=== PATIENT | female | born 1955 | race Caucasian/White ===

== ENCOUNTER 2021-12-10 10:07 | Emergency (ER) | payer BC, SELFPAY ==
--- NOTE | ~2021-12-10 | XR_ITS ---
EXAMINATION: XR hip RT min 2V DATE: 12/10/2021 12:24 INDICATION: Right hip injury. TECHNIQUE: 2 views of right hip were obtained. COMPARISON: None. FINDINGS: Bone alignment is normal. No fracture. There is mild right hip osteoarthritis characterized by a marginal osteophyte. No joint space narrowing. IMPRESSION: 1. Mild right hip osteoarthritis. Reviewed, dictated and finalized at location A.
--- NOTE | ~2021-12-10 | XR_ITS ---
EXAMINATION: XR ankle LT min 3V, XR foot LT min 3V DATE: 12/10/2021 10:46 INDICATION: Left foot and ankle pain post fall TECHNIQUE: 1. Anteroposterior, mortise, additional oblique and lateral view of the left ankle were obtained. 2. Dorsoplantar, two oblique and lateral views of the left foot were obtained. COMPARISON: None. FINDINGS: There is flattening of Boehler's angle consistent with a joint depression type calcaneal fracture. Th ere is up to 304 mm separation of an oblique fracture plane extending to the lateral margin of the po sterior facet of the subtalar joint, distally to the lateral margin of the articular surface at the c alcaneocuboid joint. Alignment of the ankle joint and remainder of the left foot is normal. No other fractures identified. Mild osteoarthritis at a few of the tarsal metatarsal and interphalangeal joint s. Mild soft tissue swelling about the hindfoot. Bunion with additional mild soft tissue swelling med ial to the head of the first metatarsal. Moderate-sized plantar calcaneal spur. No ankle joint effusi on. IMPRESSION: 1. Minimally displaced joint depression type left calcaneal fracture with flattening of Boehler's ang le. Reviewed, dictated and finalized at location B. IMPRESSION: 1. Minimally displaced joint depression type left calcaneal fracture with bib ening of Boehler's angle.
--- NOTE | ~2021-12-10 | XR_ITS ---
EXAMINATION: XR knee RT min 4V DATE: 12/10/2021 10:46 INDICATION: Right patellar pain post fall TECHNIQUE: Anteroposterior, 2 oblique, sunrise and crosstable lateral views of the right knee were ob tained COMPARISON: None. FINDINGS: Alignment is normal. No fracture. Joint space appear normal on nonweightbearing imaging. No joint ef fusion/layering lipohemarthrosis. Mild soft tissue swelling anterior to the patellar tendon. IMPRESSION: 1. No right knee joint effusion or osseous abnormality. Reviewed, dictated and finalized at location B.
--- NOTE | 2021-12-10 10:17 | ED.LOWEXIN ---
HPI - Extremity Injury (Lower) General Chief Complaint: Extremity Injury, Lower Stated Complaint: left foot,right knee injury Time Seen by Provider: 12/10/21 10:22 Source: patient, family, RN notes reviewed and old records reviewed History of Present Illness HPI Narrative: 66 year [facility] complaints of falling last evening along side of road twisting her ankle and landing onto knees. Patient reports that she was hauling building material on top of her car and it fell off onto the road and in process of retrieving material she fell with injuries to left ankle and right knee. Patient reports that she has been putting ice, lissy wrap to left foot and ankle and has taken Tylenol for her discomfort. Patient has abrasions to bilateral knees and patient reports that she can't put any weight on her right knee. Patient reports no LOC at time of injuries. MD complaint: knee injury, ankle injury and foot injury Onset (ago): hour(s) (yesterday at 1900) Injury: Left: ankle and foot and Right: knee Severity scale (1-10): 10 (foot 10, knee 7) Treatments prior to arrival: cold therapy and other (lissy wrap to left foot and took tylenol) Related Data Allergies Allergy/AdvReac Type Severity Reaction Status Date / Time No Known Allergies Allergy Verified 12/10/21 10:08 Review of Systems Review of Systems: CONSTITUTIONAL: Denies fever, chills, or sweats. EYES: Denies visual changes, redness, or discharge. ENT: Denies rhinorrhea, congestion, sore throat, or otalgia. CARDIOVASCULAR: Denies chest pain, palpitations, or edema. RESPIRATORY: Denies cough or dyspnea. GASTROINTESTINAL: Denies abdominal pain, nausea, vomiting, or diarrhea. GENITOURINARY: Denies dysuria or hematuria. SKIN: Denies rash or itching. MUSCULOSKELETAL: Denies back pain, positive right knee pain and left foot and ankle pain or myalgia. NEUROLOGIC: Denies headache, numbness, or weakness. PSYCHIATRIC: Denies anxiety or depression. All systems reviewed & are unremarkable except as noted in HPI and below PMFSH Past Medical History Medical History (Updated 12/11/21 @ 00:01 by Ramandeep Dhaliwal) Post-menopausal Sinus problem Surgical History Surgical History (Updated 12/10/21 @ 10:37 by Eryn Churchill NP) H/O hand surgery pin to left ring finger Social History Social History (Updated 12/10/21 @ 10:37 by Eryn Churchill NP) Smoking status: Never smoker Substance use: never Living arrangements: with family Gender identity (if verbalized by the patient): Female Comments At time of signature, agree with nursing past medical, surgical, social and family history. There is no relevant family history pertinent to the presenting complaint Exam Narrative: GENERAL: Well-appearing, well-nourished, and in mild acute distress. HEAD: Normocephalic, atraumatic. EYES: PERRLA and EOMI ENT: Nares clear, no rhinorrhea or epistaxis. Mucous membranes moist.TM's normal, throat with no redness or swelling or lesions NECK: Supple. no lymphadenopathy CHEST: Clear to auscultation. No respiratory distress.SAO2 100% on room air HEART: Regular rate and rhythm. No murmur heard. Normal peripheral pulses. ABDOMEN: Soft, nontender, nondistended, normal active bowel sounds. EXTREMITIES: Normal range of motion. edema and swelling present to left foot and ankle with bruising noted to foot, mobility intact with pain, circulation and sensation intact, Pain to right knee anterior aspect with no swelling noted, patient reports that he can't bear weight on her right knee feels like it gives out, circulation and sensation intact to right leg with strong pulses. SKIN: Warm, dry, no rash.Abrasions to both knees NEURO: No focal deficits. Alert and oriented x3. Course Course Level of Care: Express Care Visit Vital Signs Vital signs: Vital Signs Temperature 37.3 C 12/10/21 10:21 Pulse Rate 88 12/10/21 10:21 Respiratory Rate 18 12/10/21 10:21 Blood Pressur
[2021-12-10 10:21] VITALS: BP 161/89; PULSE 88; RESP 18; TEMP 37.3
[2021-12-10 10:49] VITALS: O2SAT 100
== END 2021-12-10 13:00 | disposition home or self-care (01) ==
PROVIDERS: Emergency Provider Registered Nurse; PCP Family Medicine
DX: S92.002A Unspecified fracture of left calcaneus, initial encounter for closed fracture (principal); W19.XXXA Unspecified fall, initial encounter; Z91.81 History of falling; S80.01XA Contusion of right knee, initial encounter
CPT/HCPCS: 29515; 73502; 73564; 73610; 73630; 99214; G0463

== ENCOUNTER 2022-04-04 17:20 | Inpatient (IN) | payer BC, SELFPAY ==
[2022-04-04] VITALS (24 sets, daily range): BP systolic 134–192; BP diastolic 64–86; PULSE 56–78; RESP 7–21; TEMP 36.6; O2SAT 93–100
--- NOTE | ~2022-04-04 | XR_ITS ---
EXAMINATION: XR chest 1V portable Exam Date/Time: 04/04/2022 18:30 CDT HISTORY: RT SIDED CHEST PAIN Comparison: None available. RESULT: Lines, tubes, and devices: None. Lungs and pleura: Clear. Cardiomediastinal silhouette: Unremarkable. Other: No acute osseous or upper abdominal finding. IMPRESSION: No acute cardiopulmonary process. Reviewed, dictated and finalized at location K.
--- NOTE | ~2022-04-04 | MR_ITS ---
EXAMINATION: MR MRCP wo/w con/w 3D wo ind DATE: 04/05/2022 12:11 INDICATION: Cholecystitis. TECHNIQUE: Magnetic resonance imaging (MRI) of the abdomen was performed without and with 13 mL Multi Kei intravenous contrast. Sequences included coronal T2-weighted FS FSE, coronal T2-weighted FSE, a xial T1-weighted LAVA, coronal FS FIESTA, axial dual-echo T1-weighted SPGR, coronal lava-FLEX, sagitt al T2-weighted FSE, axial T2-weighted FSE, and axial DWI. Thick-slab T2-weighted FSE images were obta ined for magnetic resonance cholangiopancreatography (MRCP). Maximum intensity projection 3-D reconst ructions of the volumetric data were created by the technologist. Postcontrast sequences included cor onal LAVA-flex and time course of axial T1-weighted LAVA. COMPARISON: CT abdomen and pelvis 04/04/2022, 08/20/18 FINDINGS: ABDOMEN MRI: There are cysts in the liver measuring up to 11 mm. The gallbladder is distended and con tains gallstones. Gallbladder wall thickening is noted. There is a 6 mm cystic lesion in the tail of the pancreas, stable from 08/20/18. Pancreas divisum is noted. The spleen is normal. There is chronic t hickening of the adrenal glands, likely benign. There are cysts in right kidney measuring up to 9 mm. 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 There is a s mall volume of ascites. ABDOMEN MRCP: The common duct is normal and measures 7 mm. IMPRESSION: 1. No choledocholithiasis. 2. Acute cholecystitis. 3. Small volume of ascites. 4. 6 mm cystic lesion of the pancreas, stable from 08/20/18. The differential diagnosis includes pseudo cyst, intraductal papillary mucinous neoplasm (IPMN), mucinous cystic neoplasm (MCN), serous cystaden charlene, and neuroendocrine tumor. Abdomen MRI without and with contrast is recommended in one year. Reviewed, dictated and finalized at location B. IMPRESSION: 1. No choledocholithiasis. 2. Acute cholecystitis. 3. Small volume of ascites. 4. 6 mm cystic lesion of the pancreas, stable from 08/20/18. The differential donna gnosis includes pseudocyst, intraductal papillary mucinous neoplasm (IPMN), muc inous cystic neoplasm (MCN), serous cystadenoma, and neuroendocrine tumor. Abdo men MRI without and with contrast is recommended in one year.
--- NOTE | ~2022-04-04 | CT_ITS ---
EXAMINATION: CT chest abdomen pelvis w con DATE: 04/04/2022 20:41 INDICATION: Sudden onset epigastric, RUQ and R CHEST PAIN . TECHNIQUE: Computed tomography (CT) of the chest, abdomen, and pelvis was performed with 100 mL Omnip aque-350 intravenous contrast. Automated exposure control and iterative reconstruction technique were employed. The dose-length product was 413.91 mGy-cm. COMPARISON: 08/20/2018 FINDINGS: Thoracic aorta: No significant dilation or calcification. Lung parenchyma and airways: Right upper lobe scarring. Mild peripheral senescent or bronchiolitic ch anges. Minimal bibasilar atelectasis and scar. Thoracic inlet, axillae and chest wall: No thyroid or soft tissue mass. No axillary lymphadenopathy. Mediastinum: No mass or lymphadenopathy. Calcified right hilar nodes Heart and pericardium: Normal heart size. No pericardial effusion. Coronary artery calcifications: Mild. Pleura: No effusion or mass. Thoracic bones: No acute osseous finding in the chest. ABDOMEN/PELVIS: Liver: Multiple cysts and/or hemangiomas. Mild hepatomegaly. Mild intrahepatic duct dilation. Biliary/Gallbladder: Fluid distended gallbladder with mild wall inflammation and pericholecystic flui d. Mild extrahepatic duct dilation, new. 2 mm hyperdensity in the region of the distal common bile du ct which may represent an obstructing stone. Pancreas: Mild pancreatic duct dilation, new Spleen: Granulomatous calcifications. Adrenals:No mass. Kidneys: Left renal angiomyolipoma or subcapsular lipoma. No suspicious mass, stone, or hydronephrosi s. GI tract: Distal esophageal and gastric wall edema. No small or large bowel dilation. Normal appendix . Mesentery/Peritoneum: No ascites, mass, or free air. Retroperitoneum: No mass. Atherosclerotic abdominal aortic and/or arterial calcifications. Pelvis: Distended urinary bladder, otherwise the pelvic organs are within normal limits Soft Tissues: Soft tissues and body wall unremarkable. Abdominopelvic bones: No acute osseous finding in the abdomen/pelvis. IMPRESSION: Choledocholithiasis. Esophagitis/gastritis. Reviewed, dictated and finalized at location K.
--- NOTE | ~2022-04-04 | US_ITS ---
EXAMINATION: US abdomen limited DATE: 04/05/2022 12:24 INDICATION: Acute cholecystitis. TECHNIQUE: Multiple grayscale and Doppler ultrasound images of the abdomen were obtained. COMPARISON: MRCP 04/05/2022 FINDINGS: The visualized portions of the head, body, and tail of the pancreas are normal. There is a 1.7 cm cyst in the liver. There is a 1.3 cm hyperechoic mass in left hepatic lobe, likely a hemangiom a. No liver surface nodularity. There is normal flow in main portal vein. The gallbladder is distende d and contains gallstones. Gallbladder wall thickening is noted. There is a positive sonographic Murp hy sign. The common duct is normal and measures 6 mm. IMPRESSION: 1. Acute cholecystitis. Reviewed, dictated and finalized at location B. IMPRESSION: 1. Acute cholecystitis.
--- NOTE | 2022-04-04 18:09 | ECG_ITS ---
Measurements Intervals Crum Rate: 60 P: 72 AZ: 133 QRS: 76 QRSD: 86 T: 61 QT: 410 QTc: 410 Interpretive Statements SINUS RHYTHM POSSIBLE LEFT ATRIAL ENLARGEMENT [-0.1mV P WAVE IN V1/V2] SHORT [place] INTERVAL ABNORMAL ECG NO PREVIOUS ECG AVAILABLE FOR COMPARISON Electronically Signed On 04-05-2022 14:03:16 CDT by Ladarius Walker M.D.
[2022-04-04 18:52] LABS: Basophils Percent Auto 0.3 % (0.2-1.2); Eosinophils Percent Auto 0.2 % (0-4.4); Hematocrit 44.8 % (37.0-47.0); Hemoglobin 13.9 g/dL (12.0-15.0); Immature Granulocyte Absolute 0.05 K/mm3 (0.00-0.031); Immature Granulocyte Percent A 0.5 % (0-0.5); Lymphocytes Absolute Auto 1.61 K/mm3 (0.9-3.2); Mean Corpuscular Volume 96.8 fl (80-100); Mean Platelet Volume 10.2 fl (7.4-10.4); Monocytes Absolute Auto 0.4 K/mm3 (0.1-0.6); Monocytes Percent Auto 3.4 % (2.6-8.5); Neutrophils Absolute Auto 8.7 K/mm3 (1.3-6.7); Neutrophils Percent Auto 80.6 % (45.5-73.1); Platelet Count Result 197 k/mm3 (150-375); Red Blood Count 4.63 M/mm3 (4.2-5.4); Red Cell Distribution Width 12.2 % (11.5-14.5); White Blood Count 10.7 K/mm3 (4.5-10.0)
--- NOTE | 2022-04-04 18:54 | ED.ABDPAIN ---
HPI - Abdominal Pain General Chief Complaint: Abdominal Pain Stated Complaint: abd pain Time Seen by Provider: 04/04/22 18:54 Source: patient and RN notes reviewed Mode of arrival: ambulatory Limitations: no limitations History of Present Illness HPI narrative: 66 years old white female presented to the ED with sudden onset of epigastric pain radiating to right upper quadrant and right chest started and arrived back at 1 PM today 1 hour after eating chicken salad. Patient denies any fever, chills, nausea, vomiting or having similar symptoms in the past. Patient report that the pain like spasm, constant, no aggravating or relieving factors. Patient does not take medicine at home, history of section. Patient does not smoke or drink or uses drugs. Patient came by private car. Related Data Allergies Allergy/AdvReac Type Severity Reaction Status Date / Time No Known Allergies Allergy Verified 12/10/21 10:08 Review of Systems Review of Systems: All systems reviewed & are unremarkable except as noted in HPI and below PMFSH Past Medical History Medical History Post-menopausal Sinus problem Surgical History Surgical History H/O hand surgery pin to left ring finger Social History Social History Smoking status: Never smoker Substance use: never Gender identity (if verbalized by the patient): Female Exam Narrative: General appearance: Well-developed, well-nourished, looks in pain Skin: Normal color Head: Normocephalic, nontraumatic Eyes: Clear conjunctiva ENT: Oropharynx normal, ears normal, nose normal Neck: Supple, nontender Chest and respiratory: Airway patent, no respiratory distress, no accessory muscle use Heart: Regular rate/rhythm Abdomen: Soft, severe tenderness epigastric and right upper quadrant Vascular: Normal peripheral pulses, normal capillary refill. Musculoskeletal: Normal range of motion, nontender back Neurologic: Alert and oriented ?3, [employer] is normal as tested, no gross motor deficit Course Consultations Consultation #1: Dr. Villegas Date: 04/04/22 Time: 22:09 Vital Signs Vital signs: Vital Signs Temperature 36.6 C 04/04/22 18:05 Pulse Rate 56 L 04/04/22 18:05 Respiratory Rate 18 04/04/22 18:05 Blood Pressure 192/73 H 04/04/22 18:05 Pulse Oximetry 100 04/04/22 18:05 Oxygen Delivery Room Air 04/04/22 18:05 Temperature 36.6 C 04/04/22 18:05 Pulse Rate 73 04/04/22 21:46 Respiratory Rate 11 L 04/04/22 21:46 Blood Pressure 134/73 04/04/22 21:46 Pulse Oximetry 93 04/04/22 21:46 Oxygen Delivery Room Air 04/04/22 18:05 MDM - Abdominal Pain Lab Data Result diagrams: 04/04/22 18:45 04/04/22 19:50 Labs: Lab Results 04/04/22 04/04/22 04/04/22 Range/Units 18:45 18:45 18:45 WBC 10.7 H (4.5-10.0) K/mm3 RBC 4.63 (4.2-5.4) M/mm3 Hgb 13.9 (12.0-15.0) g/dL Hct 44.8 (37.0-47.0) % MCV 96.8 (80-100) fl MCH 30.0 (26-34) pg MCHC 31.0 L (32-36) g/dl RDW 12.2 (11.5-14.5) % Plt Count 197 (150-375) k/mm3 MPV 10.2 (7.4-10.4) fl Immature Gran % (Auto) 0.5 (0-0.5) % Neut % (Auto) 80.6 H (45.5-73.1) % Lymph % (Auto) 15.0 L (18.3-44.2) % [place] % (Auto) 3.4 (2.6-8.5) % Eos % (Auto) 0.2 (0-4.4) % Baso % (Auto) 0.3 (0.2-1.2) % Lymph # (Auto) 1.61 (0.9-3.2) K/mm3 [place] # (Auto) 0.4 (0.1-0.6) K/mm3 Eos # (Auto) 0.0 (0-0.3) K/mm3 Baso # (Auto) 0.0 (0.0-0.1) K/mm3 Abs Immat Gran (auto) 0.05 H
[2022-04-04 19:04] LABS: INR 1.1; Partial Thromboplastin Time 27.2 SECONDS (22.3-36.8); Prothrombin Time 13.3 Seconds (11.1-14.7)
[2022-04-04] MEDS: HYDROmorphone HCL INJ (*CRX) 1 MG/ML SYR 0.5 MG IV PUSH ×2 (19:13→21:14)
[2022-04-04] MEDS: SODIUM CHLORIDE 0.9% IV 1,000 ML 999 ML IV CONT (19:13)
[2022-04-04] MEDS: ONDANSETRON INJ 4 MG/2 ML VIAL IV PUSH ×2 (19:14→21:15)
[2022-04-04 19:15] LABS: Troponin I < 0.012 ng/mL (0.000-0.034)
[2022-04-04 20:13] LABS: Alanine Aminotransferase 23 U/L (6-35); Albumin Level 4.1 g/dL (3.5-5.1); Alkaline Phosphatase 103 U/L (38-126); Anion Gap 8 mmol/L (8-16); Aspartate Amino Transferase 27 U/L (14-36); Bilirubin,Total 0.3 mg/dL (0.2-1.3); Blood Urea Nitrogen 14 mg/dL (7-17); Calcium 9.3 mg/dL (8.4-10.2); Carbon Dioxide 21 mmol/L (22-30); Chloride 107 mmol/L (98-107); Estimated CRCL calculation 67 ml/min; Estimated Glomerular Filt Rate > 60; Glucose 117 mg/dL (65-110); Lipase 144 U/L (23-300); Potassium 3.6 mmol/L (3.4-5.0); Sodium 136 mmol/L (137-145)
[2022-04-04 21:11] LABS: Add Urine Microscopic? YES; Appearance Urine Turbid (Clear); Bacteria Urine 4+ /hpf; Bilirubin Urine Negative (Negative); Blood Urine Negative (Negative); Color Urine Yellow (Yellow); Glucose Urine UA Negative (Negative); Ketones Urine Negative (Negative); Leukocyte Esterase Ur Negative LEU/UL (Negative); Nitrate Urine Negative (Negative); Protein Urine Negative (Negative); RBC Urine 21-50 /hpf (0-2); Urobilinogen Urine Negative mg/dL (<2.0); WBC Urine 0-3 /hpf
[2022-04-04] MEDS: PANTOPRAZOLE SODIUM IV 40 MG VIAL IV PUSH (22:10)
[2022-04-04 22:21] LABS: Troponin I 0.015 ng/mL (0.000-0.034)
[2022-04-04 23:33] LABS: SARS-CoV-2 RNA PCR Negative
[2022-04-05 00:52] LABS: Troponin I < 0.012 ng/mL (0.000-0.034)
[2022-04-05 01:05] VITALS: BP 141/60; PULSE 65; RESP 18; TEMP 36.1; O2SAT 100; BMI 25.7
[2022-04-05] MEDS: SODIUM CHLORIDE 0.9% IV 1,000 ML 75 ML IV CONT (02:16)
[2022-04-05] MEDS: ONDANSETRON INJ 4 MG/2 ML VIAL IV PUSH ×3 (02:17→13:12)
[2022-04-05] MEDS: HYDROmorphone HCL INJ (*CRX) 1 MG/ML SYR 0.5 MG IV PUSH ×3 (02:21→21:51)
--- NOTE | 2022-04-05 02:39 | ADMGEN ---
This patient, Nicole Rankin, was admitted to [facility] Surg Room 310-01. Patient/family oriented to hospital policies and general routines including ID bracelet, bed and alarms, visiting hours, pain management, procedures, bathroom and other care routines, personal items, smoking policy, room service/diet, and visiting hours. Information on how to activate the Rapid Response Team has been discussed. Patient/Family are encouraged to report perceived risks to care and to ask questions if they do not understand what they are told or what they should do.
[2022-04-05 06:00] VITALS: BP 111/47; PULSE 68; RESP 14; TEMP 36.1; O2SAT 96
--- NOTE | 2022-04-05 07:05 | PM.IMHP ---
H&P: HPI History of Present Illness Date/Time: 04/05/22 07:05 Chief Complaint: Abdominal pain Narrative: 66-year-old previously healthy female who presented to the ER via private vehicle for abdominal pain. she reports that she was at work when she ate some chicken salad and some buffalo chicken dip with chips. Shortly thereafter she began having epigastric abdominal pain that radiated up into her chest. The pain radiated also back through to her back. It was a 10/10 in intensity. He reports that the pain in then moved low bit further down into her epigastric region. She describes it having episodes of increased intensity of squeezing tightening. She felt the pain was similar to having contractions. She did not have any fevers or chills. She had no associated nausea or vomiting. A little bit low later after she got off work her pain moved more to the right upper quadrant and radiated up to her right shoulder. At that time she decided come into the ER for evaluation. Her pain was improved with Dilaudid. She has had 2 other episodes similar to this earlier this year but the prior symptoms only lasted an hour or less. her CT demonstrated choledocholithiasis and evidence of esophagitis and gastritis. She denies any frequent heartburn, nausea or reflux symptoms. Review of Systems Review of Systems: 12 systems were reviewed with pertinent positives and negatives per HPI. Except as documented in the HPI, all other systems were reviewed and are negative. [facility] Past Medical History Medical History Post-menopausal Sinus problem Surgical History Surgical History H/O hand surgery pin to left ring finger Family History Family History (Updated 04/05/22 @ 09:17 by Leila Serrato DO) Mother Pacemaker Atrial fibrillation Hyperthyroidism Father , At 70 years old Acute myocardial infarction Alcoholism COPD (chronic obstructive pulmonary disease) Social History Social History (Updated 04/05/22 @ 09:06 by Leila Serrato DO) Social History: the patient is . Her in her mother live in the same home. She works in an office. She is a former smoker he used to smoke up to 2 packs of cigarettes per day for 15-20 years. She quit smoking in her late 30s. She rarely drinks alcohol and only in small amounts. She denies illicit substance use. Code status: Full code Surrogate decision maker: Daija (mother) Smoking packs per day: 2 Smoking cigarettes per day: 40.0 Years smoked: 15 Smoking pack-years: 30.00 Smoking status: Former smoker Tobacco type: cigarettes Alcohol intake: never Substance use: never Gender identity (if verbalized by the patient): Female Spiritual care concerns: No Has the Lack of Transportation Kept You From Medical Appointments or From Getting Medications?: No Within the Past 12 Months, Were You Worried Whether Your Food Would Run Out Before You Got Money to Buy More?: Never True What is Your Housing Situation Today?: I Have Housing Are You Worried That in the Next 2 Months, You May Not Have Your Own Housing to Live In?: No Do You Have Trouble Paying Your Heating Or Electricity Bill?: No Do You Have Trouble Paying For Medicines?: No Are You Currently Unemployed and Looking for Work?: No Highest Level of Education Completed: High School Diploma/GED Do You Have Trouble With Childcare or the Care of a Family Member?: No Meds Home Medications and Allergies Home Medications Medication Instructions Recorded Confirmed Type hydrocodone 7.5 mg-acetaminophen 1 tablet PO Q6H PRN pain #10 tabs 12/10/21 04/05/22 Rx 325 mg tablet Allergies Allergy/AdvReac Type Severity Reaction Status Date / Time No Known Allergies Allergy Verified 12/10/21 10:08 Vital Signs Vital Signs - 24 hr 04/04/22 18:05 04/04/22 18:37 04/04/22 18
[2022-04-05 07:36] LABS: Hematocrit 36.6 % (37.0-47.0); Hemoglobin 11.5 g/dL (12.0-15.0); Mean Corpuscular HGB Conc 31.4 g/dl (32-36); Mean Corpuscular Hemoglobin 29.5 pg (26-34); Mean Corpuscular Volume 93.8 fl (80-100); Mean Platelet Volume 9.8 fl (7.4-10.4); Platelet Count Result 172 k/mm3 (150-375); Red Cell Distribution Width 12.1 % (11.5-14.5); White Blood Count 10.3 K/mm3 (4.5-10.0)
[2022-04-05 07:47] LABS: Alanine Aminotransferase 46 U/L (6-35); Albumin Level 3.8 g/dL (3.5-5.1); Alkaline Phosphatase 75 U/L (38-126); Anion Gap 8 mmol/L (8-16); Aspartate Amino Transferase 43 U/L (14-36); Bilirubin,Total 0.4 mg/dL (0.2-1.3); Blood Urea Nitrogen 13 mg/dL (7-17); Calcium 9.3 mg/dL (8.4-10.2); Carbon Dioxide 27 mmol/L (22-30); Chloride 105 mmol/L (98-107); Estimated CRCL calculation 58 ml/min; Estimated Glomerular Filt Rate > 60; Glucose 110 mg/dL (65-110); Potassium 4.1 mmol/L (3.4-5.0); Sodium 140 mmol/L (137-145)
[2022-04-05] MEDS: PANTOPRAZOLE SODIUM IV 40 MG VIAL IV PUSH (09:09)
--- NOTE | 2022-04-05 09:29 | WPDGICN ---
Assessment and Plan Assessment and plan (1) Choledocholithiasis: Code(s): K80.50 - Calculus of bile duct without cholangitis or cholecystitis without obstruction Status: Acute Assessment and Plan: CT scan suggested possible 2mm common bile duct gallstone. No other gallstones noted. She appears to have cholecystitis by x-ray imaging. Plan for broad-spectrum antibiotic coverage. Ultrasound the gallbladder to further confirm gallstones. MRCP to evaluate the common bile duct. Ultimately she likely will require surgical resection of her gallbladder. Will follow with you pending these results. (2) Epigastric abdominal pain: Code(s): R10.13 - Epigastric pain Status: Acute Assessment and Plan: Because of epigastric pain CT scan performed. Possible esophagitis noted on this exam as well as possible cholecystitis and a common bile duct gallstone. MRCP will be obtained to evaluate the biliary tree. PPI will be started for possible esophagitis. Consider elective EGD if pain persist after which further evaluation for cholecystitis. (3) Esophagitis: Code(s): K20.90 - Esophagitis, unspecified without bleeding Status: Acute GI Consult Note Consult date/time: 04/05/22 09:29 Reason for consult: Epigastric pain HPI: Nicole Rankin is a 66 year old female developed rather severe epigastric pain yesterday at work. She describes at the mid epigastric area that radiated along both sides of the chest and abdomen. She only obtain relief upon present emergency room and receiving a pain injection. Patient has not had similar pain like this in the past. patient denies any dysphagia. She has had no weight loss. She denies a fever. Family history noncontributory. Review of Systems Review of Systems: Review of systems noncontributory. [facility] Past Medical History Medical History Post-menopausal Sinus problem Surgical History Surgical History H/O hand surgery pin to left ring finger Family History Family History (Updated 04/05/22 @ 09:17 by Leila Serrato DO) Mother Pacemaker Atrial fibrillation Hyperthyroidism Father , At 70 years old Acute myocardial infarction Alcoholism COPD (chronic obstructive pulmonary disease) Social History Social History (Updated 04/05/22 @ 09:06 by Leila Serrato DO) Social History: the patient is . Her in her mother live in the same home. She works in an office. She is a former smoker he used to smoke up to 2 packs of cigarettes per day for 15-20 years. She quit smoking in her late 30s. She rarely drinks alcohol and only in small amounts. She denies illicit substance use. Code status: Full code Surrogate decision maker: Daija (mother) Smoking packs per day: 2 Smoking cigarettes per day: 40.0 Years smoked: 15 Smoking pack-years: 30.00 Smoking status: Former smoker Tobacco type: cigarettes Alcohol intake: never Substance use: never Gender identity (if verbalized by the patient): Female Spiritual care concerns: No Has the Lack of Transportation Kept You From Medical Appointments or From Getting Medications?: No Within the Past 12 Months, Were You Worried Whether Your Food Would Run Out Before You Got Money to Buy More?: Never True What is Your Housing Situation Today?: I Have Housing Are You Worried That in the Next 2 Months, You May Not Have Your Own Housing to Live In?: No Do You Have Trouble Paying Your Heating Or Electricity Bill?: No Do You Have Trouble Paying For Medicines?: No Are You Currently Unemployed and Looking for Work?: No Highest Level of Education Completed: High School Diploma/GED Do You Have Trouble With Childcare or the Care of a Family Member?: No Meds Home Medications and Allergies Home Medications Medication Instructions Record
[2022-04-05 11:05] LABS: Lipase 69 U/L (23-300)
--- NOTE | 2022-04-05 11:18 | PM.CNGS ---
Assessment and Plan Assessment and plan (1) Choledocholithiasis: Code(s): K80.50 - Calculus of bile duct without cholangitis or cholecystitis without obstruction Status: Acute Assessment and Plan: CT suggesting distal common bile duct hyperdensity that could represent a gallstone. GI consulted and has ordered an MRCP, will await results. May need ERCP if there is a common duct stone. LFTs are essentially normal. Currently on IV Zosyn. There is also mention of pancreatic duct dilatation, but no CT evidence of pancreatitis and lipase is normal. Repeat lipase today. If there is choledocholithiasis with gallstones noted on MRCP or US, then the patient would likely eventually need a laparoscopic cholecystectomy to prevent future complications or recurrence. Discussed the procedure, risks, benefits, alternatives, and expected recovery with the patient in detail. All questions answered. Will await test results and GI recommendations prior to deciding on timing of surgery. (2) Abnormal CT scan, gallbladder: Code(s): R93.2 - Abnormal findings on diagnostic imaging of liver and biliary tract Status: Acute Assessment and Plan: CT suggests a fluid distended gallbladder with mild wall inflammation and pericholecystic fluid, could suggest cholecystitis. No definitive gallstones seen on CT. There is mention of a distal common bile duct hyperdensity that could represent a gallstone. GI consulted and ordered MRCP and RUQ US, will await results. LFTs normal on admission with slightly elevated AST and ALT this morning. Normal lipase. (3) Epigastric abdominal pain: Code(s): R10.13 - Epigastric pain Status: Acute (4) Esophagitis: Code(s): K20.90 - Esophagitis, unspecified without bleeding Status: Acute Assessment and Plan: Suggested on CT scan. GI consulted. Currently on IV Protonix. (5) Gastritis: Code(s): K29.70 - Gastritis, unspecified, without bleeding Status: Acute Assessment and Plan: Suggested on CT scan. GI consulted. Currently on IV Protonix. Plan I have discussed the patient's case and plan of care with Dr. Pennington. Thank you for allowing us to see the patient in consultation and we will continue to follow along with you. History of Present Illness Consult details Consult date: 04/05/22 Reason for consult: other (Possible cholecystitis, choledocholithiasis) Requesting physician: Leila Serrato DO Narrative: This is a 66-year-old female who presented with epigastric and right upper quadrant abdominal pain that radiated to her back. The pain started suddenly yesterday evening after eating chicken salad for dinner. She has had this pain in the past in 2 previous episodes that did not seem to coordinate with a meal. The previous episodes resolved spontaneously. No fever or chills. Due to the unrelenting pain, she came into the ER yesterday for evaluation. In the ER, she developed nausea with vomiting. Labs showed a WBC count of 10,700, normal LFTs, normal lipase. In the ER, there was mention of radiation of pain into her right chest and mid back. Troponins were negative x 3. EKG showed no ischemic changes. Chest x-ray negative. CT chest/abdomen/pelvis showed possible choledocholithiasis with gallbladder distention and wall inflammation, no obvious gallstones, and pancreatic duct dilatation. Patient was admitted to the Hospitalist. GI was consulted. She was started on IV Zosyn and made NPO with IV fluids. She is requiring IV Dilaudid for her pain control. She is still taking pain medication this morning but feels it is controlled with the Dilaudid. MRCP and US ordered. No other complaints at this time. Only previous abdominal surgery is a delivery. Review of Systems Review of Systems: All systems reviewed & are unremarkable except as noted in HPI and below Constitutional: Constitutional: Reports no additional constitutional complaints, Denies chills, Den
[2022-04-05 14:00] VITALS: BP 131/69; PULSE 69; RESP 16; TEMP 36.6; O2SAT 98
[2022-04-05 22:00] VITALS: BP 128/70; PULSE 68; RESP 16; TEMP 36.7; O2SAT 98
[2022-04-06] VITALS (13 sets, daily range): BP systolic 89–156; BP diastolic 51–77; PULSE 68–85; RESP 10–18; TEMP 36.1–38.1; O2SAT 94–100
[2022-04-06] MEDS: SODIUM CHLORIDE 0.9% IV 1,000 ML 100 ML IV CONT ×3 (00:04→16:47)
[2022-04-06] MEDS: ONDANSETRON INJ 4 MG/2 ML VIAL IV PUSH ×2 (00:33→04:41)
[2022-04-06] MEDS: HYDROmorphone HCL INJ (*CRX) 1 MG/ML SYR 0.5 MG IV PUSH (04:41)
[2022-04-06 06:38] LABS: Basophils Percent Auto 0.2 % (0.2-1.2); Eosinophils Percent Auto 0.5 % (0-4.4); Hematocrit 35.2 % (37.0-47.0); Hemoglobin 11.1 g/dL (12.0-15.0); Immature Granulocyte Absolute 0.03 K/mm3 (0.00-0.031); Immature Granulocyte Percent A 0.3 % (0-0.5); Lymphocytes Absolute Auto 1.05 K/mm3 (0.9-3.2); Mean Corpuscular HGB Conc 31.5 g/dl (32-36); Mean Corpuscular Hemoglobin 29.6 pg (26-34); Mean Corpuscular Volume 93.9 fl (80-100); Mean Platelet Volume 9.9 fl (7.4-10.4); Monocytes Absolute Auto 0.6 K/mm3 (0.1-0.6); Monocytes Percent Auto 6.4 % (2.6-8.5); Neutrophils Absolute Auto 7.1 K/mm3 (1.3-6.7); Neutrophils Percent Auto 80.6 % (45.5-73.1); Platelet Count Result 152 k/mm3 (150-375); Red Blood Count 3.75 M/mm3 (4.2-5.4); Red Cell Distribution Width 12.1 % (11.5-14.5); White Blood Count 8.8 K/mm3 (4.5-10.0)
[2022-04-06 06:58] LABS: Alanine Aminotransferase 38 U/L (6-35); Albumin Level 3.4 g/dL (3.5-5.1); Alkaline Phosphatase 83 U/L (38-126); Anion Gap 9 mmol/L (8-16); Aspartate Amino Transferase 34 U/L (14-36); Bilirubin,Total 0.6 mg/dL (0.2-1.3); Blood Urea Nitrogen 11 mg/dL (7-17); Calcium 8.6 mg/dL (8.4-10.2); Carbon Dioxide 25 mmol/L (22-30); Chloride 106 mmol/L (98-107); Cholesterol 142 mg/dL (0-200); Estimated CRCL calculation 58 ml/min; Estimated Glomerular Filt Rate > 60; Glucose 108 mg/dL (65-110); HDL Direct 52 mg/dL; Potassium 3.4 mmol/L (3.4-5.0); Sodium 140 mmol/L (137-145); Triglycerides 61 mg/dL (<150)
[2022-04-06 07:09] LABS: LDL Cholesterol Direct 60 mg/dL
--- NOTE | 2022-04-06 08:00 | PM.IMPN ---
Progress Note: A&P Assessment and Plan (1) Choledocholithiasis: Code(s): K80.50 - Calculus of bile duct without cholangitis or cholecystitis without obstruction Status: Acute Assessment and Plan: MRCP did not show choledocholithiasis but acute cholecystitis. Patient was taken to the operating room for lap shanika today and appears to be doing well postoperatively. -ADAT -Continue zosyn for now -Appreciate General Surgery recommendations (2) Esophagitis: Code(s): K20.90 - Esophagitis, unspecified without bleeding Status: Acute Assessment and Plan: PPI Appreciate Gastroenterology recommendations. (3) Gastritis: Code(s): K29.70 - Gastritis, unspecified, without bleeding Status: Acute Assessment and Plan: PPI Appreciate gastroenterology recommendations. Subjective Date/time seen: 04/06/22 08:01 Patient seen and examined after surgery. Patient says she no longer has nausea. Says she still has some abdominal pain but it is not nearly as intense as it was prior to surgery. Says did well with apple juice but does not want to eat everything due to fear of having nausea again. Denies flatus. Review of Systems Gastrointestinal: Gastrointestinal: Reports abdominal pain, Denies nausea and Denies vomiting Exam Narrative: GENERAL: NAD, cooperative HEENT: Normocephalic, atraumatic, anicteric NECK: Supple CV: Normal S1, S2, RRR, No MRG RESP: CTAB, Normal work of breathing. Abdomen: Soft, non-tender, non-distended, hypoactive BS EXTREMITIES: Warm and well perfused, no clubbing, cyanosis SKIN: warm, dry and intact. NEURO: CN 2-12 grossly intact. Objective Data Vital Signs Vital Signs: Vital Signs - 24 hr 04/05/22 14:00 04/05/22 22:00 04/05/22 20:00 Temperature 36.6 C 36.7 C Pulse Rate 69 68 Respiratory Rate 16 16 Blood Pressure 131/69 128/70 Pulse Oximetry 98 98 Oxygen Delivery Room Air Intake/Output Intake/Output: Intake & Output 04/03/22 04/04/22 04/05/22 04/06/22 23:59 23:59 23:59 23:59 Intake Total 1000 1570 300 Balance 1000 1570 300 Meds/Results Medications: Active Medications Generic Name Dose Route Start Last Admin Trade Name Freq PRN Reason Stop Dose Admin Hydromorphone HCl 0.5 mg 04/04/22 23:13 04/06/22 04:41 Hydromorphone Hcl Inj (*Crx) 1 Mg/Ml Syr IV PUSH 0.5 mg Q4H PRN Administration Pain Rated 7-10 Piperacillin/Tazobactam/Dextrose 3.375 gm in 50 mls @ 100 mls/hr 04/05/22 05:00 04/06/22 05:17 Zosyn 3.375 Gm/D5w 50ml Pm IVPB Infused Q6H ESTELA Infusion Sodium Chloride 1,000 mls @ 100 mls/hr 04/04/22 23:15 04/06/22 00:04 Normal Saline Iv IV CONT 100 mls/hr .Q10H ESTELA Administration Acetaminophen 1,000 mg in 100 mls @ 400 mls/hr 04/05/22 12:00 04/06/22 06:42 Ofirmev 1,000 Mg Ivpb IVPB 04/06/22 11:59 Infused Q6HR ESTELA Infusion Potassium Chloride 40 meq/ 520 mls @ 130 mls/hr 04/06/22 08:00 Sodium Chloride IVPB 04/06/22 11:59 ONCE ONE Ondansetron HCl 4 mg 04/04/22 23:13 04/06/22 04:41 Ondansetron Inj 4 Mg/2 Ml Vial IV PUSH 4 mg Q4H PRN Administration Nausea Pantoprazole Sodium 40 mg 04/05/22 09:00 04/05/22 09:09 Pantoprazole Sodium Iv 40 Mg Vial IV PUSH 40 mg QAM ESTELA Administration Radiology Results: ITS Impressions Chest X-Ray 04/04/22 19:15 IMPRESSION: No acute cardiopulmonary process. Chest/Abdomen/Pelvis CT 04/04/22 21:34 IMPRESSION: Choledocholithiasis. Esophagitis/gastritis. MRCP 04/05/22 12:17 IMPRESSION: 1. No choledocholithiasis. 2. Acute cholecystitis. 3. Small volume of ascites. 4. 6 mm cystic lesion of the pancreas, stable from 08/20/18. The differential diagnosis includes pseudocyst, intraductal papillary mucinous neoplasm (IPMN), mucinous cystic neoplasm (MCN), serous cystadenoma, and neuroendocrine tumor. Abdomen MRI without and with contrast is recommended in
--- NOTE | 2022-04-06 08:05 | WPDGIPROGNO ---
Progress Note: A&P Assessment and Plan (1) Cholecystitis: Code(s): K81.9 - Cholecystitis, unspecified Status: Acute Assessment and Plan: Patient with apparent cholecystitis by ultrasound and MRCP. No evidence common duct stone by MRCP. Patient on broad-spectrum antibiotics. Appreciate surgical coverage. Anticipate cholecystectomy today. Subjective Date/time seen: 04/06/22 08:05 Patient alert. Uncomfortable rest. Complains of upper abdominal discomfort. Review of Systems Review of Systems: Review of systems noncontributory. Exam Narrative: Physical exam reveals patient be alert. She is anicteric. Vital signs stable. HEENT exam unremarkable. Lungs are clear heart without murmur. Abdomen bowel sounds present soft but diffusely tender. Objective Data Vital Signs Vital Signs: Vital Signs - 24 hr 04/05/22 14:00 04/05/22 22:00 04/05/22 20:00 Temperature 97.8 F 98.0 F Pulse Rate 69 68 Respiratory Rate 16 16 Blood Pressure 131/69 128/70 Pulse Oximetry 98 98 Oxygen Delivery Room Air Intake/Output Intake/Output: Intake & Output 04/03/22 04/04/22 04/05/22 04/06/22 23:59 23:59 23:59 23:59 Intake Total 1000 1570 300 Balance 1000 1570 300 Meds/Results Medications: Active Medications Generic Name Dose Route Start Last Admin Trade Name Freq PRN Reason Stop Dose Admin Hydromorphone HCl 0.5 mg 04/04/22 23:13 04/06/22 04:41 Hydromorphone Hcl Inj (*Crx) 1 Mg/Ml Syr IV PUSH 0.5 mg Q4H PRN Administration Pain Rated 7-10 Piperacillin/Tazobactam/Dextrose 3.375 gm in 50 mls @ 100 mls/hr 04/05/22 05:00 04/06/22 05:17 Zosyn 3.375 Gm/D5w 50ml Pm IVPB Infused Q6H ESTELA Infusion Sodium Chloride 1,000 mls @ 100 mls/hr 04/04/22 23:15 04/06/22 00:04 Normal Saline Iv IV CONT 100 mls/hr .Q10H ESTELA Administration Acetaminophen 1,000 mg in 100 mls @ 400 mls/hr 04/05/22 12:00 04/06/22 06:42 Ofirmev 1,000 Mg Ivpb IVPB 04/06/22 11:59 Infused Q6HR ESTELA Infusion Potassium Chloride 40 meq/ 520 mls @ 130 mls/hr 04/06/22 08:00 Sodium Chloride IVPB 04/06/22 11:59 ONCE ONE Ondansetron HCl 4 mg 04/04/22 23:13 04/06/22 04:41 Ondansetron Inj 4 Mg/2 Ml Vial IV PUSH 4 mg Q4H PRN Administration Nausea Pantoprazole Sodium 40 mg 04/05/22 09:00 04/05/22 09:09 Pantoprazole Sodium Iv 40 Mg Vial IV PUSH 40 mg QAM ESTELA Administration Radiology Results: ITS Impressions Chest X-Ray 04/04/22 19:15 IMPRESSION: No acute cardiopulmonary process. Chest/Abdomen/Pelvis CT 04/04/22 21:34 IMPRESSION: Choledocholithiasis. Esophagitis/gastritis. MRCP 04/05/22 12:17 IMPRESSION: 1. No choledocholithiasis. 2. Acute cholecystitis. 3. Small volume of ascites. 4. 6 mm cystic lesion of the pancreas, stable from 08/20/18. The differential diagnosis includes pseudocyst, intraductal papillary mucinous neoplasm (IPMN), mucinous cystic neoplasm (MCN), serous cystadenoma, and neuroendocrine tumor. Abdomen MRI without and with contrast is recommended in one year. Abdomen Ultrasound 04/05/22 12:36 IMPRESSION: 1. Acute cholecystitis. Labs Labs: Laboratory Results - last 24 hr 04/05/22 04/06/22 04/06/22 07:18 06:03 06:03 WBC 8.8 RBC 3.75 L Hgb 11.1 L Hct 35.2 L MCV 93.9 MCH 29.6 MCHC 31.5 L RDW 12.1 Plt Count 152 MPV 9.9 Immature Gran % (Auto) 0.3 Neut % (Auto) 80.6 H Lymph % (Auto) 12.0 L [place] % (Auto) 6.4 Eos % (Auto) 0.5 Baso % (Auto) 0.2 Lymph # (Auto) 1.05 [place] # (Auto) 0.6 Eos # (Auto) 0.0 Baso # (Auto) 0.0 Abs Immat Gran (auto) 0.03 Absolute Neuts (auto) 7.1 H Absolute Nucleated RBC 0.0 Nucleated RBC % 0.0 Sodium 140 Potassium 3.4 Chloride 106 Carbon Dioxide 25 Anion Gap 9 BUN 11 Creatinine 0.70 Estim Creat Clear Calc 58 Estimated GFR > 60 Glucose 108 Calcium 8.6
[2022-04-06] MEDS: PROCHLORPERAZINE EDISYLATE 10 MG/2 ML VIAL 5 MG IV PUSH (08:34)
[2022-04-06] MEDS: PANTOPRAZOLE SODIUM IV 40 MG VIAL IV PUSH (08:35)
[2022-04-06] MEDS: CHLORHEXIDINE GLUCONATE 4% SOL 120 ML BTL 1 APPLIC (08:35)
[2022-04-06] MEDS: POTASSIUM CHLORIDE INJ 40 MEQ in SODIUM CHLORIDE 0.9% IV 500 ML 130 MEQ IVPB (08:52)
--- NOTE | 2022-04-06 10:51 | PC.NURSE ---
Pt to surgery for procedure. Transported per bed by hospital staff.
[2022-04-06] MEDS: LACTATED RINGERS 1,000 ML 30 ML IV CONT ×2 (11:05→14:48)
[2022-04-06] MEDS: ACETAMINOPHEN 500 MG TABLET 1000 MG PO (11:45)
[2022-04-06] MEDS: KETOROLAC 15 MG/ML VIAL (*BKC) IV PUSH (11:45)
--- NOTE | 2022-04-06 11:55 | WPDANESEPPF ---
Anes - Initial Pre Proc Eval Procedure: Operation Date: 04/06/22 12:30 Proposed Procedures p Laparoscopic Cholecystectomy; Possible Intraoperative Cholangiogram - Shakeel Pennington MD Date/Time: 04/06/22 11:55 Surgeon: Leila Serrato DO Pre Op Diagnosis: Choledocholithiasis Patient Data Age: 66 Gender: F Height: 1.6 m Weight: 65.9 kg Last Vital Signs Temp 38.1 C H 04/06/22 11:30 Pulse 72 04/06/22 11:30 Resp 14 04/06/22 11:30 BP 150/61 H 04/06/22 11:30 Pulse Ox 97 04/06/22 11:30 O2 Del Method Room Air 04/06/22 11:30 Allergies Allergy/AdvReac Type Severity Reaction Status Date / Time No Known Allergies Allergy Verified 12/10/21 10:08 Home Medications Medication Instructions Recorded Confirmed Type hydrocodone 7.5 mg-acetaminophen 1 tablet PO Q6H PRN pain #10 tabs 12/10/21 04/05/22 Rx 325 mg tablet Laboratory Tests 04/06/22 04/06/22 04/06/22 06:03 06:03 06:03 WBC 8.8 K/mm3 K/mm3 (4.5-10.0) RBC 3.75 M/mm3 L M/mm3 (4.2-5.4) Hgb 11.1 g/dL L g/dL (12.0-15.0) Hct 35.2 % L % (37.0-47.0) MCV 93.9 fl fl (80-100) MCH 29.6 pg pg (26-34) MCHC 31.5 g/dl L g/dl (32-36) RDW 12.1 % % (11.5-14.5) Plt Count 152 k/mm3 k/mm3 (150-375) MPV 9.9 fl fl (7.4-10.4) Immature Gran % (Auto) 0.3 % % (0-0.5) Neut % (Auto) 80.6 % H % (45.5-73.1) Lymph % (Auto) 12.0 % L % (18.3-44.2) [place] % (Auto) 6.4 % % (2.6-8.5) Eos % (Auto) 0.5 % % (0-4.4) Baso % (Auto) 0.2 % % (0.2-1.2) Lymph # (Auto) 1.05 K/mm3 K/mm3 (0.9-3.2) [place] # (Auto) 0.6 K/mm3 K/mm3 (0.1-0.6) Eos # (Auto) 0.0 K/mm3 K/mm3 (0-0.3) Baso # (Auto) 0.0 K/mm3 K/mm3 (0.0-0.1) Abs Immat Gran (auto) 0.03 K/mm3 K/mm3 (0.00-0.031) Absolute Neuts (auto) 7.1 K/mm3 H K/mm3 (1.3-6.7) Absolute Nucleated RBC 0.0 K/mm3 K/mm3 (0.0-0.012) Nucleated RBC % 0.0 % % (0.0-0.2) Sodium 140 mmol/L mmol/L (137-145) Potassium 3.4 mmol/L mmol/L (3.4-5.0) Chloride 106 mmol/L mmol/L (98-107) Carbon Dioxide 25 mmol/L mmol/L (22-30) Anion Gap 9 mmol/L mmol/L (8-16) BUN 11 mg/dL mg/dL (7-17) Creatinine 0.70 mg/dL mg/dL (0.7-1.0) Estim Creat Clear Calc 58 ml/min ml/min Estimated GFR > 60 (59 - ) Glucose 108 mg/dL mg/dL (65-110) Calcium 8.6 mg/dL mg/dL (8.4-10.2) Total Bilirubin 0.6 mg/dL mg/dL (0.2-1.3) AST 34 U/L U/L (14-36) ALT 38 U/L H U/L (6-35) Alkaline Phosphatase 83 U/L U/L (38-126) Total Protein 6.0 g/dL L g/dL (6.3-8.2) Albumin 3.4 g/dL L g/dL (3.5-5.1) Triglycerides 61 mg/dL mg/dL (<150) Cholesterol 142 mg/dL mg/dL (0-200) LDL Cholesterol Direct 60 mg/dL mg/dL HDL Direct 52 mg/dL mg/dL Blood Type AB Negative Antibody Screen Negative Patient hx anesthesia problems: none Family hx anesthesia problems: none Results Review: All pre-operative results and documents have been reviewed as part of the pre-operative evaluation. [facility] Past Medical History Medical History Post-menopausal Sinus problem Surgical History Surgical History H/O hand surgery pin to left ring finger History of delivery Family History Family History Mother Pacemaker Atrial fibrillation Hyperthyroidism Father , At 70 years old Acute myocardial infarction Alcoholism COPD (chronic obstructive pulmonary disease) Social History Social Hi
[2022-04-06] MEDS: SCOPOLAMINE 1.5 MG PATCH TRANSDERM (12:49)
--- NOTE | 2022-04-06 12:49 | WPDHPUPDATE1 ---
History and Physical Update Update Date/Time: 04/06/22 12:49 History and Physical has been reviewed, including an updated exam of the patient. There are changes in the patient's condition. She c/o lots of nausea now. Labs all fairly normal this AM. Risks, benefits, and alternatives have been discussed and questions answered. Patient agrees to proceed with procedure.
[2022-04-06] MEDS: BUPIVACAINE/EPINEPHRINE 0.25% 50 ML VIAL INFILTRATE (14:34)
--- NOTE | 2022-04-06 14:53 | W.PM.PROC2 ---
Procedure Note - Detailed Date of Procedure 04/06/22 Pre-op Diagnosis Acute Cholecystitis with cholelithiasis Post-op Diagnosis Same Procedure Performed laparoscopic cholecystectomy Surgeon Shakeel Pennington MD [employer] Business Partner [email or web address] assisted living associate Anesthesia General Indications patient present presented with right upper quadrant pain. An admission ultrasound showed gallstones and gallbladder wall thickening. MRCP showed gallstones with pericholecystic fluid but no common duct bile duct stone therefore we plan to proceed expeditiously with a laparoscopic cholecystectomy in order to try to avoid we too long that open cholecystectomy is required. Findings Patient had enlarged thick-walled reddish colored gallbladder that appeared to be significantly inflamed. There was some pericholecystic edema posterior to the gallbladder as we dissected off the liver. Description of Procedure Patient was seen preoperatively in the holding area and risks, benefits and alternatives confirmed. Patient was taken to the operating room and general anesthesia was induced. A time out was then preformed with the surgery team confirming patient and site of surgery. The abdomen was prepped and draped in the usual sterile fashion. Incision was made just below the umbilicus with an 11 blade knife. I placed 2 stay sutures of O- Vicryl on either side of the mid-line fascia beneath the umbilicus and was then able to slide in the Garcia cannula through the fascial defect into the peritoneum. First under low flow and then under high flow the abdomen was insufflated with carbon dioxide never exceeding a pressure of 14. Three 5 mm trocars were then introduced under direct vision. The following trocars were introduced under direct vision: a 5 mm in the epigastrium and two 5 mm trocars along the right costal margin laterally in the subcostal area. There were some omental adhesions to the underside of the gallbladder Ancef fairly thick adhesions between the lateral wall of the duodenum and the need neck of the gallbladder which had to be taken down prior to dissection of the triangle of Calot.. These were taken down with blunt and sharp dissection using some Bovie cautery for hemostasis. We were able to dissect this completely away from the neck of the gallbladder. I then carefully used the L-shaped cautery and the [place] dissector to dissect out the triangle of Calot. I then was able to dissect out both the cystic duct and cystic artery and identify a window of safety. The gall bladder was grasped and the cystic duct and artery were dissected free and clipped with an 5 mm endo-clip advanced nursing professor. The cystic duct and artery were clipped with use of 2 clips on the patient's side 1 on the gallbladder side utilizing a 5 mm endoclip-advanced nursing professor. The cystic duct was then transected. The cystic artery was also transected at this point. The gall bladder was removed using electrocautery and then removed from the abdomen using a large 10 mm grasper via the umbilical incision. In order to get the large stone out of the abdomen within the gallbladder I did make the fascial defect slightly larger with Jovel scissors. The trocars were removed visualizing hemostasis and the remaining gas evacuated. The large trocar site at the umbilicus was closed with use of the 2 stay sutures of 0 Vicryl mentioned above and also two figure of 8 #1-Vicryl suture. The 2 stay sutures mentioned above on either side of the fascia were also tied together to help approximate this midline fascia. Further local anesthetic was placed into each incision for postop pain control. The skin incisions were closed with subcuticular suture of 4-0 Monocryl. Surgical glue then was applied to all the incisions. Patient tolerated the procedure well was taken to the recovery room in good condition. Implants none Estimated Blood Loss 25 Packing No Pathology Yes (Gallbladder) Complications No immediate complications Conditio
--- NOTE | 2022-04-06 16:39 | PC.NURSE ---
Pt back to room from PACU. Resting per bed. No S/S acute distress. Family at bedside.
[2022-04-06] MEDS: ACETAMINOPHEN 325 MG TABLET 650 MG PO (22:49)
[2022-04-07] MEDS: ONDANSETRON INJ 4 MG/2 ML VIAL IV PUSH (04:53)
[2022-04-07] MEDS: ACETAMINOPHEN 325 MG TABLET 650 MG PO ×2 (05:19→15:51)
[2022-04-07 05:49] VITALS: BP 141/72; PULSE 68; RESP 18; TEMP 36.4; O2SAT 95
[2022-04-07 06:56] LABS: Alanine Aminotransferase 75 U/L (6-35); Albumin Level 3.4 g/dL (3.5-5.1); Alkaline Phosphatase 108 U/L (38-126); Anion Gap 6 mmol/L (8-16); Aspartate Amino Transferase 56 U/L (14-36); Bilirubin,Total 0.4 mg/dL (0.2-1.3); Blood Urea Nitrogen 9 mg/dL (7-17); Calcium 9.1 mg/dL (8.4-10.2); Carbon Dioxide 25 mmol/L (22-30); Chloride 110 mmol/L (98-107); Estimated CRCL calculation 67 ml/min; Estimated Glomerular Filt Rate > 60; Glucose 106 mg/dL (65-110); Potassium 4.1 mmol/L (3.4-5.0); Sodium 141 mmol/L (137-145)
--- NOTE | 2022-04-07 07:51 | WPDANESPN ---
Anes - Prog Note Post-Op Date/Time: 04/07/22 07:51 Cardiovascular status: normal Respiratory status: normal Airway patency: baseline Mental status: baseline Post-Op hydration status: normal Vital Signs: Last Vital Signs Temp 36.4 C L 04/07/22 05:49 Pulse 68 04/07/22 05:49 Resp 18 04/07/22 05:49 BP 141/72 H 04/07/22 05:49 Pulse Ox 95 04/07/22 05:49 O2 Del Method Room Air 04/06/22 20:00 O2 Flow Rate 8 04/06/22 15:35 Pain Score (VAS): 0 I/O: Intake & Output 04/06/22 04/06/22 04/07/22 15:59 23:59 07:59 Intake Total 2049 1750 650 Output Total 1000 Balance 2049 750 650 Laboratory Tests 04/06/22 06:03 04/07/22 06:21 04/07/22 06:21 Sodium 141 Potassium 4.1 Chloride 110 H Carbon Dioxide 25 Anion Gap 6 L BUN 9 Creatinine 0.60 L Estim Creat Clear Calc 67 Estimated GFR > 60 Glucose 106 Calcium 9.1 Total Bilirubin 0.4 AST 56 H ALT 75 H Alkaline Phosphatase 108 Total Protein 6.0 L Albumin 3.4 L Post-procedural complaints: none Patient Feedback: Patient satisfied with anesthetic care.
[2022-04-07 08:00] VITALS: PULSE 68; RESP 18; O2SAT 95
[2022-04-07] MEDS: PANTOPRAZOLE 40 MG TABLET PO (08:38)
--- NOTE | 2022-04-07 09:19 | PM.PNGS ---
Progress Note: A&P Assessment and Plan (1) Cholecystitis: Code(s): K81.9 - Cholecystitis, unspecified Status: Resolved Assessment and Plan: The patient doing well postop day 1. Will stop all antibiotics as she has received 2 doses after surgery. Her gallbladder was quite inflamed and she was nauseated after surgery so kept her overnight. If does well with breakfast okay to discharge. Would suggest home with enough Clarence for 1-3 days. She states she will try just Tylenol if she does not need the Clarence. Follow-up in the office in 2 weeks. Subjective Subjective Date/Time Seen: 04/07/22 07:19 Post Op day: 1 ( Doing well status post laparoscopic cholecystectomy) Patient reports: no new complaints, feels better and still having pain ( will be trying a Clarence with breakfast) Interval history: patient states pain now is more incisional. She occasionally has some nausea but does not have any right now and is planning to try full liquid breakfast. Review of Systems Review of Systems: All systems reviewed & are unremarkable except as noted in HPI and below Constitutional: Constitutional: Reports as per HPI, Denies chills and Denies fever(s) Cardiovascular: Cardiovascular: Denies chest pain and Denies dyspnea Respiratory: Respiratory: Reports no additional respiratory complaints and Denies dyspnea Gastrointestinal: Gastrointestinal: Reports as per HPI and Denies bloating Musculoskeletal: Musculoskeletal: Reports no additional musculoskeletal complaints Neurologic: Denies memory loss Psychiatric: Psychiatric: Denies anxiety and Denies memory loss Exam Const: General: cooperative, comfortable, alert and awake Orientation/consciousness: patient oriented x3 HENMT: Head: normal to inspection Mouth: Yes moist mucous membranes Eyes: Sclera: sclerae normal Pupils: Equal, round and reactive pupils present Neck: Neck: normal visual inspection and no JVD Chest: Chest palpation & inspection: normal inspection of the chest Resp: Effort & Inspection: normal respiratory effort Auscultation: clear to auscultation bilaterally GI: Inspection: incision ( Clean and dry), scaphoid and no visible herniation Auscultation: normal bowel sounds Other: abdomen is soft. Objective Data Vital Signs Vital Signs: Vital Signs - 24 hr 04/06/22 11:30 04/06/22 14:50 04/06/22 15:05 Temperature 38.1 C H 36.7 C Pulse Rate 72 75 75 Respiratory Rate 14 10 L 10 L Blood Pressure 150/61 H 89/51 L 115/65 Pulse Oximetry 97 100 100 Oxygen Delivery Room Air Simple Face Mask Simple Face Mask Oxygen Flow Rate 8 8 04/06/22 15:20 04/06/22 15:35 04/06/22 15:50 Temperature Pulse Rate 73 75 68 Respiratory Rate 10 L 12 10 L Blood Pressure 128/62 132/63 144/64 H Pulse Oximetry 100 100 96 Oxygen Delivery Simple Face Mask Simple Face Mask Room Air Oxygen Flow Rate 8 8 04/06/22 16:05 04/06/22 21:52 04/06/22 20:00 Temperature 36.5 C Pulse Rate 69 74 Respiratory Rate 12 18 Blood Pressure 149/76 H 137/68 Pulse Oximetry 95 94 Oxygen Delivery Room Air Room Air Oxygen Flow Rate 04/07/22 05:49 Temperature 36.4 C L Pulse Rate 68 Respiratory Rate 18 Blood Pressure 141/72 H Pulse Oximetry 95 Oxygen Delivery Oxygen Flow Rate Intake/Output Intake/Output: Intake & Output 04/04/22 04/05/22 04/06/22 04/07/22 23:59 23:59 23:59 23:59 Intake Total 1000 1570 4100 890 Output Total 1000 Balance 1000 1570 3100 890 Meds/Results Medications: Active Medications Generic Name Dose Route Start Last Admin Trade Name Freq PRN Reason Stop Dose Admin Acetaminophen 650 mg 04/06/22 19:19 04/07/22 05:19 Acetaminophen 325 Mg Tablet PO 650 mg Q6H PRN Administration Mild Pain (1-3) or Fever Piperacillin/Tazobactam/Dextrose 3.375 gm in 50 mls @ 100 mls/hr 04/05/22 05:00 04/07/22 05:20 Zosyn 3.375 Gm/D5w 50ml Pm IVPB Infused Q6H ESTELA Infusion Ondansetron HCl 4 mg 04/04/22
[2022-04-07 10:54] VITALS: O2SAT 95
[2022-04-07 13:50] VITALS: BP 144/79; PULSE 66; RESP 18; TEMP 36.9; O2SAT 98
--- NOTE | 2022-04-07 14:41 | PM.DS ---
DS: Admitting Diagnosis Discharge Date 04/07/2022 Admitting Diagnosis Abdominal Pain DS: Discharge Diagnosis Discharge Diagnosis (1) Choledocholithiasis: Code(s): K80.50 - Calculus of bile duct without cholangitis or cholecystitis without obstruction Status: Ruled-out Assessment and Plan: MRCP did not show choledocholithiasis but acute cholecystitis. Patient was taken to the operating room for lap shanika 04/06/2022 and has tolerated a diet well. Will be discharged home today without antibiotics per recommendations from General Surgery. Patient will follow up with General Surgery in 2 weeks. (2) Esophagitis: Code(s): K20.90 - Esophagitis, unspecified without bleeding Status: Acute Assessment and Plan: PPI (3) Gastritis: Code(s): K29.70 - Gastritis, unspecified, without bleeding Status: Acute Assessment and Plan: PPI (4) Pancreatic lesion: Code(s): K86.9 - Disease of pancreas, unspecified Status: Acute Assessment and Plan: 6 mm cystic lesion of the pancreas, stable from 08/20/18. The differential diagnosis includes pseudocyst, intraductal papillary mucinous neoplasm (IPMN), mucinous cystic neoplasm (MCN), serous cystadenoma, and neuroendocrine tumor. Abdomen MRI without and with contrast is recommended in one year. Patient will need to follow up outpatient with PCP to order repeat MRI in one year. DS: Summary Hospital Course Reason for hospitalization: Abdominal Pain Hospital Course: 66 year old female with no significant past medical history who presented to the emergency department with abdominal pain and had a CT abdomen pelvis concerning for choledocholithiasis. Right upper quadrant ultrasound showed acute cholecystitis. MRCP showed no choledocholithiasis and a 6 mm stable cystic lesions from 08/20/18 on the pancreas. Radiology recommended follow up MRI with and without contrast in 1 year for the pancreas lesion. General Surgery was consulted and took the patient to the operating room for a laparoscopic cholecystectomy. Patient had significant nausea preoperatively and some nausea post-operatively as well. Patient tolerated breakfast and lunch well the next day. Patient discharged to home with two week follow up with General Surgery. Time Spent with Patient Time attestation: Total time spent providing and/or coordinating discharge services: Exam Narrative: GENERAL: NAD, cooperative HEENT: Normocephalic, atraumatic, anicteric NECK: Supple CV: Normal S1, S2, RRR, No MRG RESP: CTAB, Normal work of breathing. Abdomen: Soft, non-tender, non-distended, hypoactive BS EXTREMITIES: Warm and well perfused, no clubbing, cyanosis SKIN: warm, dry and intact. NEURO: CN 2-12 grossly intact. DS: Data Data Completed and Pending Pending studies at discharge: Pending at discharge 04/06/22 14:04 Surgical [PTH] Routine Labs on day of discharge: Labs from last 24 hours 04/07/22 06:21 Sodium 141 Potassium 4.1 Chloride 110 H Carbon Dioxide 25 Anion Gap 6 L BUN 9 Creatinine 0.60 L Estim Creat Clear Calc 67 Estimated GFR > 60 Glucose 106 Calcium 9.1 Total Bilirubin 0.4 AST 56 H ALT 75 H Alkaline Phosphatase 108 Total Protein 6.0 L Albumin 3.4 L Laboratory Tests 04/04/22 04/04/22 04/04/22 18:45 18:45 18:45 WBC 10.7 H RBC 4.63 Hgb 13.9 Hct 44.8 MCV 96.8 MCH 30.0 MCHC 31.0 L RDW 12.2 Plt Count 197 MPV 10.2 Immature Gran % (Auto) 0.5 Neut % (Auto) 80.6 H Lymph % (Auto) 15.0 L [place] % (Auto) 3.4 Eos % (Auto) 0.2 Baso % (Auto) 0.3 Lymph # (Auto) 1.61 [place] # (Auto) 0.4 Eos # (Auto) 0.0 Baso # (Auto) 0.0 Abs Immat Gran (auto) 0.05 H Absolute Neuts (auto) 8.7 H Absolute Nucleated RBC 0.0 Nucleated RBC % 0.0 PT 13.3 INR 1.1 APTT 27.2 Sodium Potassium Chloride Carbon Dioxi
== END 2022-04-07 16:44 | disposition home or self-care (01) | DRG 419 ==
LOC: ANHED 22:16 → ANH3MEDSUR 04-05 00:45
PROVIDERS: Nurse Practitioner Family; Surgery; Admitting Provider Internal Medicine; Emergency Provider Emergency Medicine; PCP Family Medicine; Visit Provider Family Medicine
PROC: 0FT44ZZ Resection of Gallbladder, Percutaneous Endoscopic Approach (ICD-10-PCS; CPT 47562; principal; 2022-04-06 12:30)
DX: K80.00 Calculus of gallbladder with acute cholecystitis without obstruction (principal); K86.9 Disease of pancreas, unspecified; K20.90 Esophagitis, unspecified without bleeding; K29.70 Gastritis, unspecified, without bleeding; Z20.822 Contact with and (suspected) exposure to COVID-19; Z28.21 Immunization not carried out because of patient refusal; Z87.891 Personal history of nicotine dependence; Z78.0 Asymptomatic menopausal state
CPT/HCPCS: 36415; 71045; 71260; 74177; 74183; 76376; 76705; 80053; 80061; 81001; 83690; 84484; 85025; 85027; 85610; 85730; 86850; 86900; 86901; 88304; 93005; 96361; 96365; 96375; 96376; 99285; A9270; A9577; C9113; C9803; J0131; J0780; J1100; J1170; J1885; J2250; J2405; J2543; J2704; J2710; J3010; J3480; J7030; J7040; J7120; Q9967; U0003; U0005

== ENCOUNTER 2023-12-27 14:41 | Outpatient (CLI) | payer BC, SELFPAY ==
--- NOTE | ~2023-12-27 | US_ITS ---
EXAMINATION: US pelvic limited DATE: 12/27/2023 15:04 INDICATION: Difficulty urinating. Weak urine stream. Thrombosed hemorrhoids. TECHNIQUE: Multiple grayscale and Doppler ultrasound images of the pelvis were obtained. COMPARISON: CT abdomen and pelvis 04/04/2022 FINDINGS: The prevoid bladder volume is 318 mL. The post void bladder volume is 22 mL. IMPRESSION: 1. Normal bladder. Reviewed, dictated and finalized at location E. IMPRESSION: 1. Normal bladder.
== END 2023-12-27 14:42 ==
LOC: MICIMG 14:44
PROVIDERS: PCP Family Medicine; Visit Provider Pediatrics
DX: K64.5 Perianal venous thrombosis (principal); R39.12 Poor urinary stream
CPT/HCPCS: 76857

== ENCOUNTER 2024-02-16 13:58 | Outpatient (CLI) | payer BC, SELFPAY ==
--- NOTE | ~2024-02-16 | XR_ITS ---
XR abdomen/kub 1V 02/16/2024 14:19 INDICATION: Abdomen pain and constipation TECHNIQUE: KUB COMPARISON: None FINDINGS: Bowel gas pattern is normal. There are cholecystectomy clips. There is no evidence of free air, mass, organomegaly, ascites or obstruction. No abnormal calculi are seen. The bones appear int act. IMPRESSION: 1: No acute abdominal abnormality identified. Reviewed, dictated and finalized at location B.
== END 2024-02-16 13:59 | disposition home or self-care (01) ==
PROVIDERS: PCP Family Medicine; Visit Provider Family Medicine
DX: Z00.00 Encounter for general adult medical examination without abnormal findings (principal); R10.9 Unspecified abdominal pain; K59.00 Constipation, unspecified; N39.43 Post-void dribbling; N39.8 Other specified disorders of urinary system; R63.5 Abnormal weight gain; M79.672 Pain in left foot; M21.42 Flat foot [pes planus] (acquired), left foot; L82.1 Other seborrheic keratosis; Z78.0 Asymptomatic menopausal state; Z12.39 Encounter for other screening for malignant neoplasm of breast; Z12.11 Encounter for screening for malignant neoplasm of colon
CPT/HCPCS: 74018

== ENCOUNTER 2024-04-08 05:03 | Emergency (ER) | payer BC, SELFPAY ==
--- NOTE | ~2024-04-08 | CT_ITS ---
CT of the Abdomen and Pelvis: Indication: Abdominal pain Technique: 2.5 mm axial scans were obtained through the abdomen and pelvis following intravenous adm inistration of 100 cc of Omnipaque 350. Dose reduction technique was used on this scan by utilizing a utomated exposure control and iterative reconstruction technique. The dose-length product (DLP) was 4 39.79 mGy-cm. COMPARISON: 04/04/2022 Findings: Scans through the lung bases are unremarkable. Cholecystectomy clips are present. There is mild intrahepatic biliary dilatation. There are scattered small hypodense hepatic lesions, most likely cysts and hemangiomas. The spleen, pancreas, adrenals a nd right kidney are within normal limits. There is an exophytic fat attenuation mass of the left kidn ey measuring 2.7 cm, most likely angiomyolipoma. There are atherosclerotic calcifications of the aort a. No lymphadenopathy. No bowel obstruction or bowel wall thickening. Normal appendix.. Images through the pelvis were performed. Urinary bladder unremarkable. No pelvic mass seen. No ascit es. Impression: No acute abnormality. Chronic hepatic/biliary findings, as above. Stable left renal angiomyolipoma. Reviewed, dictated and finalized at location . Impression: No acute abnormality. Chronic hepatic/biliary findings, as above. Stable left renal angiomyolipoma.
[2024-04-08 05:07] VITALS: BP 176/85; PULSE 77; RESP 17; TEMP 36.6; O2SAT 96
[2024-04-08 05:44] LABS: Add Urine Microscopic? NO; Appearance Urine Clear (Clear); Basophils Percent Auto 0.3 % (0.2-1.2); Bilirubin Urine Negative (Negative); Blood Urine Negative (Negative); Color Urine Yellow (Yellow); Eosinophils Absolute Auto 0.1 K/mm3 (0-0.3); Eosinophils Percent Auto 1.1 % (0-4.4); Glucose Urine UA Negative (Negative); Hematocrit 40.7 % (37.0-47.0); Hemoglobin 12.8 g/dL (12.0-15.0); Immature Granulocyte Absolute 0.02 K/mm3 (0.00-0.031); Immature Granulocyte Percent A 0.3 % (0-0.5); Ketones Urine Negative (Negative); Leukocyte Esterase Ur Negative LEU/UL (Negative); Lymphocytes Absolute Auto 2.27 K/mm3 (0.9-3.2); Lymphocytes Percent Auto 28.6 % (18.3-44.2); Mean Corpuscular HGB Conc 31.4 g/dl (32-36); Mean Corpuscular Hemoglobin 30.1 pg (26-34); Mean Corpuscular Volume 95.8 fl (80-100); Mean Platelet Volume 9.8 fl (7.4-10.4); Monocytes Absolute Auto 0.5 K/mm3 (0.1-0.6); Monocytes Percent Auto 6.3 % (2.6-8.5); Neutrophils Absolute Auto 5.1 K/mm3 (1.3-6.7); Neutrophils Percent Auto 63.4 % (45.5-73.1); Nitrate Urine Negative (Negative); Platelet Count Result 197 k/mm3 (150-375); Protein Urine Negative (Negative); Red Blood Count 4.25 M/mm3 (4.2-5.4); Red Cell Distribution Width 12.2 % (11.5-14.5); Urobilinogen Urine 0.2 mg/dL (<2.0); pH Urine 5.5 (5.0-9.0)
[2024-04-08 05:56] LABS: Alanine Aminotransferase 61 U/L (6-35); Albumin Level 4.3 g/dL (3.5-5.1); Alkaline Phosphatase 84 U/L (38-126); Anion Gap 6 mmol/L (4-12); Aspartate Amino Transferase 110 U/L (14-36); Bilirubin,Total 0.6 mg/dL (0.2-1.3); Blood Urea Nitrogen 18 mg/dL (7-17); Calcium 9.8 mg/dL (8.4-10.2); Carbon Dioxide 26 mmol/L (22-30); Chloride 106 mmol/L (98-107); Estimated CRCL calculation 61 ml/min; Estimated Glomerular Filt Rate > 60; Glucose 108 mg/dL (65-110); Lactic Acid Reflex 1.2 mmol/L (0.7-2.0); Lipase 356 U/L (23-300); Potassium 3.8 mmol/L (3.4-5.0); Sodium 138 mmol/L (137-145)
--- NOTE | 2024-04-08 06:50 | ED.ABDPAIN ---
HPI - Abdominal Pain General Chief Complaint: Abdominal Pain <Lanre Roman MD - Last Filed: 04/09/24 00:23> Stated Complaint: Epigastric pain <Lanre Roman MD - Last Filed: 04/09/24 00:23> Time Seen by Provider: 04/08/24 05:12 <Lanre Roman MD - Last Filed: 04/09/24 00:23> History of Present Illness HPI narrative: Patient is a 68 year old female who presents the emergency department this morning complaining of mid epigastric abdominal pain. Patient states the pain started approximately 2 hours prior to arrival and describes it similar to her biliary colic pain that she had prior to getting her gallbladder removed. Patient states that she has had her gallbladder removed approximately 2 years ago and has not had any issues since then. Denies any nausea vomiting or diarrhea and denies any dysuria or hematuria. Patient also denies any chest pain or shortness of breath. No additional symptoms or concerns at this time. <Lanre Roman MD - Last Filed: 04/09/24 00:23> Related Data Home Medications: Home Medications Medication Instructions Recorded Confirmed No Home Medications 01/11/24 07 <Lanre Roman MD - Last Filed: 04/09/24 00:23> Allergies/Adverse Reactions: Allergies Allergy/AdvReac Type Severity Reaction Status Date / Time No Known Allergies Allergy Verified 04/08/24 05:09 <Lanre Roman MD - Last Filed: 04/09/24 00:23> Review of Systems Review of Systems: All systems are reviewed and are negative unless stated otherwise in the HPI. <Lanre Roman MD - Last Filed: 04/09/24 00:23> PMFSH Past Medical History Medical History: Medical History Post-menopausal Sinus problem <Lanre Roman MD - Last Filed: 04/09/24 00:23> Surgical History Surgical History: Surgical History H/O hand surgery pin to left ring finger History of delivery Hx laparoscopic cholecystectomy 04-06-22 <Lanre Roman MD - Last Filed: 04/09/24 00:23> Family History Family History: Family History Mother Pacemaker Atrial fibrillation Hyperthyroidism Father , At 70 years old Acute myocardial infarction Alcoholism COPD (chronic obstructive pulmonary disease) <Lanre Roman MD - Last Filed: 04/09/24 00:23> Social History Social History: Social History Social History: the patient is . Her in her mother live in the same home. She works in an office. She is a former smoker he used to smoke up to 2 packs of cigarettes per day for 15-20 years. She quit smoking in her late 30s. She rarely drinks alcohol and only in small amounts. She denies illicit substance use. Code status: Full code Surrogate decision maker: Daija (mother) Smoking packs per day: 2 Smoking cigarettes per day: 40.0 Years smoked: 15 Smoking pack-years: 30.00 Smoking status: Former smoker Tobacco type: cigarettes Alcohol intake: never Substance use: never Lack of Transportation: No Lack of Food: Never True Current Housing: I Have Housing Concerned About Future Housing: No Difficulty Paying Gas/Electric Bills: No Difficulty Paying for Meds: No Currently Unemployed: No Education: High School Diploma/GED Difficulty w/ Childcare or Family Care: No Living arrangements: with family Gender identity (if verbalized by the patient): Female Sexual Orientation (if Verbalized by the Patient): Straight or Heterosexual Spiritual care concerns: No <Lanre Roman MD - Last Filed: 04/09/24 00:23> Exam Narrative: General: Alert, awake, afebrile, in no acute distress. HEENT: PERRL, no rhinorrhea, no post nasal drip, oropharynx clear. Cardiovascular: Regu
[2024-04-08 06:51] VITALS: BP 166/81; PULSE 65; RESP 14; O2SAT 100
[2024-04-08] MEDS: ONDANSETRON INJ 4 MG/2 ML VIAL IV PUSH (06:55)
[2024-04-08] MEDS: MORPHINE SULFATE (*CRX) 4 MG/ML INJ IV PUSH (06:55)
[2024-04-08 07:33] VITALS: BP 159/49; PULSE 73; RESP 18; TEMP 36.6; O2SAT 98
== END 2024-04-08 07:35 | disposition home or self-care (01) ==
PROVIDERS: Emergency Provider Emergency Medicine; PCP Family Medicine
DX: R10.13 Epigastric pain (principal); Z87.891 Personal history of nicotine dependence
CPT/HCPCS: 36415; 74177; 80053; 81003; 83605; 83690; 83735; 85025; 96374; 96375; 99284; J2270; J2405; Q9967

== ENCOUNTER 2024-04-16 07:20 | Outpatient (CLI) | payer BC, SELFPAY ==
--- NOTE | ~2024-04-16 | MM_ITS ---
EXAMINATION: MM screening samina BI w imelda HISTORY: Screening mammogram TECHNIQUE: Craniocaudal and mediolateral oblique 3-D tomosynthesis images were obtained and synthetic 2-D images were generated. CAD analysis was submitted and interpreted. COMPARISON: No prior mammogram is available for comparison at this institution. BREAST PARENCHYMAL COMPOSITION:Dense: The breasts are heterogeneously dense, which may obscure small masses. FINDINGS: No suspicious mass, calcification, or architectural distortion are identified in either mitzi ast to suggest malignancy. There has been no suspicious interval change. IMPRESSION: No mammographic evidence of malignancy. Recommend routine screening mammography in one year. BI-RADS Category 1: Negative Reviewed, dictated and finalized at location .
== END 2024-04-16 07:21 | disposition home or self-care (01) ==
LOC: MICIMG 07:21
PROVIDERS: PCP Family Medicine; Visit Provider Family Medicine
DX: Z12.31 Encounter for screening mammogram for malignant neoplasm of breast (principal)
CPT/HCPCS: 77063; 77067